=== PATIENT | female | born 1980 | race Hispanic/Latino ===

== ENCOUNTER 2022-05-12 01:52 | Emergency (ER) | payer SELFPAY ==
[2022-05-12 01:45] VITALS: BP 178/100; PULSE 95; RESP 18; O2SAT 95
--- NOTE | 2022-05-12 02:05 | PC.NURSE ---
Upon arrival to her room and after pt VS were taken, pt through her phone on the ground. All belongings removed from pt room including her phone.
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
[2022-05-12] MEDS: OLANZapine ODT 10 MG TAB PO (03:29)
[2022-05-12 03:40] LABS: UR Morphine/Opiate cutoff 300 Negative (Negative); Ur Creatinine 50 (Normal); Ur Specific Gravity 1.025 (Normal); Urine Amphetamines Negative (Negative); Urine Barbiturates Negative (Negative); Urine Benzodiazepines Negative (Negative); Urine Cocaine Negative (Negative); Urine MDMA Negative (Negative); Urine Methadone Negative (Negative); Urine Methamphetamines Negative (Negative); Urine Oxycodone Negative (Negative); Urine Phencyclidine Negative (Negative); Urine Tetrahydrocannabinol Positive (Negative); Urine Tricyclic Antidepressant Positive (Negative); Urine pH 5 (Normal)
[2022-05-12 03:45] LABS: Bacteria Urine None Seen; RBC Urine 0-1/HPF (0-5/HPF); Squamous Epithelial Cell Urine 1-5 /HPF (0-5/HPF); WBC Urine 0-1/HPF (0-5/HPF)
[2022-05-12 03:46] LABS: Amorphous Sediment Urine 1+; Culture Indicated Urine Cult Not Indicated
[2022-05-12 08:31] VITALS: RESP 18
--- NOTE | 2022-05-12 13:25 | PC.NURSE ---
Patient continues to be cooperative but making lots of requests. Helped patient get set up with chair and she was thankful but tearful about her situation. Offered some reassurance and she seemed to relax a bit.
[2022-05-12 15:46] VITALS: BP 163/97; PULSE 84; O2SAT 98
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
== END 2022-05-12 16:02 | disposition home or self-care (01) ==
PROVIDERS: Emergency Medicine; Emergency Provider Emergency Medicine
DX: Z72.820 Sleep deprivation (principal); R45.1 Restlessness and agitation; F41.0 Panic disorder [episodic paroxysmal anxiety]; F32.A Depression, unspecified
CPT/HCPCS: 80305; 81003; 81015; 81025; 99284

== ENCOUNTER 2023-04-22 21:32 | Emergency (ER) | payer OTHER, MEDICAID, SELFPAY ==
[2023-04-22 21:57] VITALS: BP 158/89; PULSE 90; RESP 16; TEMP 36.4; O2SAT 98; BMI 36.8
[2023-04-22 23:43] VITALS: BP 145/83; PULSE 63; RESP 18; O2SAT 95
--- NOTE | 2023-04-22 23:49 | ED.GENADULT ---
HPI - General Adult General Chief complaint: Abdominal Pain Stated complaint: HBP, nausea, body aches Time Seen by Provider: 04/22/23 23:37 Source: patient Mode of arrival: Ambulatory Limitations: no limitations History of Present Illness HPI narrative: Patient is a 43-year-old female who is here for evaluation of multiple symptoms to include body aches, headaches, heavy menstrual cycles, nausea and high blood pressure. He states these types of things Helms sometimes when she is having a heavy menstrual cycle. She is under the care of primary doctor for this. Was diagnosed with fibroids. She states that she is dehydrated despite being able to drink some fluids and eat some crackers. She is also having chest pain. Related Data Previous Rx's Medication Instructions Recorded quetiapine 50 mg tablet (Seroquel) 50 mg PO BEDTIME #30 tabs 05/12/22 Allergies Allergy/AdvReac Type Severity Reaction Status Date / Time codeine Allergy Unknown Verified 04/22/23 23:56 Review of Systems Review of Systems ROS Unobtainable: All systems reviewed & are unremarkable except as noted in HPI and below Patient History Social History Smoking Status: Never smoker Smoking Status: Never smoker alcohol intake frequency: 0-2 drinks per day Substance Use Type: does not use Exam Initial Vital Signs Initial Vital Signs: Vital Signs Temperature 97.6 F 04/22/23 21:57 Pulse Rate 90 04/22/23 21:57 Respiratory Rate 16 04/22/23 21:57 Blood Pressure 158/89 H 04/22/23 21:57 Pulse Oximetry 98 04/22/23 21:57 Oxygen Delivery Method Room Air 04/22/23 21:57 Const General: cooperative, comfortable and No ill appearing Resp Effort & Inspection: normal respiratory effort Cardio Rate: regular rate GI Inspection: normal to inspection Skin General: no rashes or lesions noted Neuro General: patient alert, patient awake and moves all extremities Extrem General: capillary refill normal Course Orders Ordered: ED Orders 04/22/23 23:50 EKG-12 Lead Stat 04/22/23 23:55 Basic Metabolic Panel Stat Complete Blood Count AUTO DIFF Stat Test Serum,Qual Stat Discontinued Medications Sodium Chloride (Normal Saline 0.9%) 1,000 mls @ 1,000 mls/hr IV BOLUS ONE Stop: 04/23/23 00:48 Last Admin: 04/23/23 00:03 Dose: 1,000 mls/hr Documented By: GREGORY Ondansetron HCl (Ondansetron 4 Mg Odt Prepack) 1 bottle MIS SEEINSTR ONE Stop: 04/23/23 01:27 Vital Signs Vital signs: Vital Signs - 8 hr 04/22/23 21:57 04/22/23 23:43 Temperature 97.6 F Pulse Rate 90 63 Respiratory Rate 16 18 Blood Pressure 158/89 H 145/83 H Pulse Oximetry 98 95 Oxygen Delivery Method Room Air Room Air Medical Decision Making Lab Data Lab results reviewed: Yes I reviewed the patient's lab results. 04/22/23 23:55 04/22/23 23:55 Labs: Lab Results 04/22/23 04/22/23 04/22/23 Range/Units 23:55 23:55 23:55 WBC 14.3 H (4.5-11.0) X10^3/uL RBC 4.83 (4.0-5.2) X10^6/uL Hgb 14.4 (12.0-16.0) g/dL Hct 41.9 (36-46) % MCV 86.6 (80-100) fL MCH 29.7 (26-34) PG MCHC 34.3 (30-36) % RDW 13.6 (11.6-14.8) % Plt Count 321 (150-400) X10^3/uL Neut % (Auto) 87.6 H (50-75) % Lymph % (Auto) 9.7 L (25-40) % Doddridge % (Auto) 1.9 L (3-14) % Eos % (Auto) 0.3 L (2-4) % Baso % (Auto) 0.5 (0-2) % Neut # (Auto) 85221 H (7120-6142) /uL Lymph # (Auto) 1400 (2524-3194) /uL Dod[place]idge # (Auto) 300 (0-900) /uL Eos # (Auto) 0 (0-450) /uL Baso # (Auto) 100 (0-100) /uL Sodium 132 L (137-145) mmol/L Potassium 4.0 (3.4-5.1) mmol/L Chloride 100 (98-107) mmol/L Carbon Dioxide 27 (22-32) mmol/L BUN 9 (7-17) mg/dL Creatinine 0.66 (0.52-1.04) mg/dL Estimated GFR > 60 (>60) mL/min BUN/Creatinine Ratio 13.6 (6-22) Glucose 142 H (70-100) mg/dL Calcium 9.3 (8.4-10.2) mg/dL Serum , Qual Negative (Negative) ECG Data Attestation: I personally reviewed and interpreted this ECG as follows: Interpretation: Sinus rhythm Ventricular rate is 70 Occasional PVC normal axis No ST T wave changes MDM Narrative Medical decision making narrative: Patient is well-appearing. Has a leukocytosis but no specific source of any infection. She states she feels better after fluids. Is tolerating oral intake. Did. No indication for antibiotics indication for admission hospital will discharge patient home to continue to take of medications as directed she was given return precautions. She expressed understanding and agreement Discharge Plan Departure Patient Disposition: Home Clinical Impression: Body aches Activity Restrictions/Additional Instructions: Recommend that you continue to take all of your medications as directed. Contact your primary care doctor for follow-up. Return to the emergency for worsening symptoms. Prescriptions: No Action quetiapine [Seroquel] 50 mg tablet 50 mg PO BEDTIME Qty: 30 0RF Stand Alone Forms: Patient Portal/API
[2023-04-23] MEDS: SODIUM CHLORIDE 0.9% 1,000 ML 1000 ML IV (00:03)
[2023-04-23 00:07] LABS: Add Manual Diff / Slide Review NO; Basophils Absolute Auto 100 /uL (0-100); Basophils Percent Auto 0.5 % (0-2); Eosinophils Absolute Auto 0 /uL (0-450); Eosinophils Percent Auto 0.3 % (2-4); Hematocrit 41.9 % (36-46); Hemoglobin 14.4 g/dL (12.0-16.0); Lymphocytes Absolute Auto 1400 /uL (1100-4500); Lymphocytes Percent Auto 9.7 % (25-40); Mean Corpuscular HGB Conc 34.3 % (30-36); Mean Corpuscular Hemoglobin 29.7 PG (26-34); Mean Corpuscular Volume 86.6 fL (80-100); Monocytes Absolute Auto 300 /uL (0-900); Monocytes Percent Auto 1.9 % (3-14); Neutrophils Absolute Auto 12500 /uL (1500-7000); Neutrophils Percent Auto 87.6 % (50-75); Platelet Count 321 X10^3/uL (150-400); Red Blood Cell Count 4.83 X10^6/uL (4.0-5.2); Red Cell Distribution Width 13.6 % (11.6-14.8); White Blood Cell Count 14.3 X10^3/uL (4.5-11.0)
[2023-04-23 00:14] LABS: BUN Creatinine Ratio 13.6 (6-22); Blood Urea Nitrogen 9 mg/dL (7-17); Calcium 9.3 mg/dL (8.4-10.2); Carbon Dioxide 27 mmol/L (22-32); Chloride 100 mmol/L (98-107); Estimated Glomerular Filt Rate > 60 mL/min (>60); Glucose 142 mg/dL (70-100); HEMOLYSIS < 15 (0-50); Sodium 132 mmol/L (137-145)
[2023-04-23 00:23] LABS: Pregnancy Test Serum,Qual Negative (Negative)
[2023-04-23] MEDS: ONDANSETRON 4 MG ODT PREPACK 1 BOTTLE MISC (01:40)
[2023-04-23 01:44] VITALS: BP 136/78; PULSE 69; RESP 18; O2SAT 99
== END 2023-04-23 01:44 | disposition home or self-care (01) ==
PROVIDERS: Emergency Provider Emergency Medicine
DX: R51.9 Headache, unspecified (principal); R11.0 Nausea; R07.9 Chest pain, unspecified; N92.0 Excessive and frequent menstruation with regular cycle
CPT/HCPCS: 36415; 80048; 84703; 85025; 93005; 93010; 99284

== ENCOUNTER 2024-10-22 16:34 | Emergency (ER) | payer OTHER, MEDICAID, SELFPAY ==
[2024-10-22 16:40] VITALS: BP 157/82; PULSE 82; RESP 18; TEMP 36.1; O2SAT 100; BMI 39.8
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
[2024-10-22] MEDS: BACITRACIN OINT 0.9 GM PCKT 1 APPLIC TOP (18:13)
[2024-10-22 18:52] VITALS: BP 140/88; PULSE 73; RESP 16; O2SAT 99
== END 2024-10-22 18:52 | disposition home or self-care (01) ==
PROVIDERS: Emergency Provider Physician Assistant Medical
DX: T22.211A Burn of second degree of right forearm, initial encounter (principal); X15.3XXA Contact with hot saucepan or skillet, initial encounter; Y93.G3 Activity, cooking and baking
CPT/HCPCS: 99282